=== PATIENT | male | born 1945 | race Caucasian/White ===

== ENCOUNTER 2016-08-16 02:21 | Inpatient (IN) | payer MEDICARE ==
--- NOTE | 2016-08-16 02:36 | EDM.PDOC ---
ED HISTORY OF PRESENT ILLNESS - General Chief Complaint: Respiratory Problem Stated Complaint: shortness of breath Time Seen by Provider: 08/16/16 02:24 Source of Information: Reports: Patient History Limitations: Reports: No limitations - History of Present Illness INITIAL COMMENTS - FREE TEXT/NARRATIVE: Patient arrives via EMS with complaints of shortness of breath. He did receive a duoneb nebulizer treatment per the EMS crew which did improve his breathing per his own report. He states he began to come down with a "chest cold" on and has felt it moving into his head. He states he has a dry cough with little mucous production. He states he has not been able to sleep well. This evening he did fall asleep and awoke 2-3 hours later with chills, aches in his muscles and joints. He is a 1-2 pack per day smoker for the last 59 years. Denies alcohol or drug use. He denies abdominal pain, normal voiding and bowel habits. No emesis, no nausea. Denies bloody emesis, stool, or urine. He does endorse fever, chills, shortness of breath, muscle and joint aches. He has had the influenza vaccine this year. Medical history includes GERD, HTN, chronic back pain, anxiety/depression. Numerous surgeries on his left knee. Symptom Onset Date: 08/11/16 Timing/Duration: Reports: Getting worse, Gradual onset Severity: moderate Location, General: Reports: chest Associated Symptoms (General): Reports: cough w sputum, diaphoresis, fever/ chills, shortness of breath Treatments AP[facility] [employer]ORTER: Reports: NSAIDS - Related Data Allergies/ADRs: Allergies Allergy/AdvReac Type Severity Reaction Status Date / Time opiates Allergy Shaking Uncoded 08/16/16 02:30 Home Meds: Home Meds Aspirin [Halfprin] 81 mg PO BRK 08/16/16 [History] Citalopram Hydrobromide [Celexa] 0.5 tab PO DAILY 08/16/16 [History] Ibuprofen 600 mg PO TID PRN 08/16/16 [History] Lisinopril [Zestril] 0.5 tab PO DAILY 08/16/16 [History] Pantoprazole [Protonix] 40 mg PO ACBREAKFAST 08/16/16 [History] Pregabalin [Lyrica] 200 mg PO BID 08/16/16 [History] guaiFENesin [Guaifenesin] 200 mg PO TID PRN 08/16/16 [History] ED ROS GENERAL - Review of Systems Review Of Systems: See Below Constitutional: Reports: fever, chills, night sweats, diaphoresis HEENT: Reports: No symptoms Respiratory: Reports: shortness of breath, cough, sputum Cardiovascular: Reports: No symptoms Endocrine: Reports: no symptoms GI/Abdominal: Reports: No symptoms : Reports: no symptoms Musculoskeletal: Reports: neck pain (chronic), back pain (chronic), muscle pain , muscle stiffness Skin: Reports: diaphoresis Neurological: Reports: no symptoms Psychiatric: Reports: No symptoms Hematologic/Lymphatic: Reports: no symptoms Immunologic: Reports: no symptoms ED EXAM, GENERAL - Physical Exam Exam: See Below Exam Limited By: No limitations General Appearance: alert, WD/WN, no apparent distress Eye Exam: bilateral eye: EOMI, PERRL Ears: normal TMs Nose: normal inspection Throat/Mouth: Normal inspection, Normal oropharynx Head: atraumatic, normocephalic Neck: normal inspection, supple, non-tender, full range of motion Respiratory/Chest: no respiratory distress, no accessory muscle use, chest non- tender, rales Cardiovascular: normal peripheral pulses, regular rate, rhythm, no edema, no murmur GI/Abdominal: normal bowel sounds, soft, non tender, no organomegaly, no distention Back Exam: normal inspection, full range of motion Extremities: normal inspection, normal range of motion, non-tender, normal capillary refill Neurological: alert, oriented, CN II-XII intact, normal cognition, normal gait Psychiatric: normal affect, normal mood Skin Exam: Warm, Dry, Intact Lymphatic: no adenopathy Course - Vital Signs Last Recorded V/S: Last Vital Signs Temp 37.6 C 08/16/16 04:38 Pulse 78 08/16/16 04:38 Resp 16 08/16/16 04:38 BP 141/67 H 08/16/16 04:38 Pulse Ox 94 L 08/16/16 04:38 - Orders/Labs/Meds Orders: Active Orders 24 hr Category Date Time Status Patient Status [ADT] Routine ADT 08/16/16 04:09 Active EKG Documentation Completion [RC] URGENT Care 08/16/16 02:30 Active Oxygen Therapy Adult [Oxygen Therapy, ED] [RC] Care 08/16/16 02:31 Active ASDIRECTED Chest 1V Frontal [CR] Stat Exams 08/16/16 02:30 Taken CULTURE BLOOD [BC] Stat Lab 08/16/16 04:20 Received CULTURE BLOOD [BC] Stat Lab 08/16/16 04:25 Received Sodium Chloride 0.9% [Normal Saline] 1,000 ml Med 08/16/16 04:15 Active IV ASDIRECTED Blood Culture x2 Reflex Set [OM.PC] Stat Oth 08/16/16 04:13 Ordered Medication Orders Sodium Chloride (Normal Saline) 1,000 mls @ 150 mls/hr IV ASDIRECTED ELIEZER Last Admin: 08/16/16 04:12 Dose: 150 mls/hr Labs: Laboratory Tests 08/16/16 08/16/16 08/16/16 Range/Units 03:10 03:10 03:10 WBC 10.4 H (4.0-10.0) x10^3/uL RBC 4.65 (4.5-6.0) x10^6/uL Hgb 14.4 (14.0-18.0) g/dL Hct 42.5 (40.0-52.0) % MCV 91.4 (78.0-93.0) fL MCH 31.0 (26.0-32.0) pg MCHC 33.9 (32.0-36.0) g/dL RDW Coeff of Kg 12.6 (10.0-15.0) % Plt Count 158 (130-400) x10^3/uL Neut % (Auto) 87.2 H (50.0-80.0) % Lymph % (Auto) 6.2 L (25.0-50.0) % Benzie % (Auto) 6.3 (2.0-11.0) % Eos % (Auto) 0.2 (0.0-4.0) % Baso % (Auto) 0.1 L (0.2-1.2) % PT 11.4 (10.0-12.8) SEC INR 1.0 L (2.0-3.5) Sodium 138 (136-145) mmol/L Potassium 4.3 (3.5-5.1) mmol/L Chloride 102 (98-107) mmol/L Carbon Dioxide 27 (21-32) mmol/L BUN 17 (7-18) mg/dL Creatinine 1.1 (0.70-1.30) mg/dL Est Cr Clr Drug Dosing 72.65 mL/min Estimated GFR (MDRD) > 60 Glucose 125 H (74-106) mg/dL Calcium 8.7 (8.5-10.1) mg/dL Corrected Calcium 8.94 (8.5-10.1) mg/dL Total Bilirubin 0.9 (0.2-1.0) mg/dL AST 19 (15-37) U/L ALT 28 (16-63) U/L Alkaline Phosphatase 51 (46-116) U/L Creatine Kinase 141 (39-308) U/L Creatine Kinase Index 0.6 (0.0-4.0) % CK-MB (CK-2) 0.8 (0.0-3.6) ng/mL Troponin I < 0.017 (<=0.056) ng/mL C-Reactive Protein 5.8 H (<=0.9) mg/dL B-Natriuretic Peptide 159 H (<=125) pg/mL Total Protein 7.1 (6.4-8.2) g/dL Albumin 3.7 (3.4-5.0) g/dL Globulin 3.4 Albumin/Globulin Ratio 1.09 Urine Color (YELLOW) Urine Appearance (CLEAR) Urine pH (5.0-8.0) Ur Specific Prospect Urine Protein (NEGATIVE) mg/dL Urine Glucose (UA) (NEGATIVE) mg/dL Urine Ketones (NEGATIVE) mg/dL Urine Occult Blood (NEGATIVE) Urine Nitrite (NEGATIVE) Urine Bilirubin (NEGATIVE) Urine Urobilinogen (0.2) EU/dL Ur Leukocyte Esterase (NEGATIVE) Urine RBC (NOT SEEN) /HPF Urine WBC (NOT SEEN) /HPF Ur Squamous Epith Cells (NEGATIVE) /HPF Urine Bacteria (NEGATIVE) /HPF Urine Mucus (NEGATIVE) /LPF 08/16/16 Range/Units 04:00 WBC (4.0-10.0) x10^3/uL RBC (4.5-6.0) x10^6/uL Hgb (14.0-18.0) g/dL Hct (40.0-52.0) % MCV (78.0-93.0) fL MCH (26.0-32.0) pg MCHC (32.0-36.0) g/dL RDW Coeff of Kg (10.0-15.0) % Plt Count (130-400) x10^3/uL Neut % (Auto) (50.0-80.0) % Lymph % (Auto) (25.0-50.0) % Benzie % (Auto) (2.0-11.0) % Eos % (Auto) (0.0-4.0) % Baso % (Auto) (0.2-1.2) % PT (10.0-12.8) SEC INR (2.0-3.5) Sodium (136-145) mmol/L Potassium (3.5-5.1) mmol/L Chloride (98-107) mmol/L Carbon Dioxide (21-32) mmol/L BUN (7-18) mg/dL Creatinine (0.70-1.30) mg/dL Est Cr Clr Drug Dosing mL/min Estimated GFR (MDRD) Glucose (74-106) mg/dL Calcium (8.5-10.1) mg/dL Corrected Calcium (8.5-10.1) mg/dL Total Bilirubin (0.2-1.0) mg/dL AST (15-37) U/L ALT (16-63) U/L Alkaline Phosphatase (46-116) U/L Creatine Kinase (39-308) U/L Creatine Kinase Index (0.0-4.0) % CK-MB (CK-2) (0.0-3.6) ng/mL Troponin I (<=0.056) ng/mL C-Reactive Protein (<=0.9) mg/dL B-Natriuretic Peptide (<=125) pg/mL Total Protein (6.4-8.2) g/dL Albumin (3.4-5.0) g/dL Globulin Albumin/Globulin Ratio Urine Color Dark yellow H (YELLOW) Urine Appearance Clear (CLEAR) Urine pH 6.5 (5.0-8.0) Ur Specific Prospect 1.020 Urine Protein Trace H (NEGATIVE) mg/dL Urine Glucose (UA) Negative (NEGATIVE) mg/dL Urine Ketones 15 H (NEGATIVE) mg/dL Urine Occult Blood Moderate H (NEGATIVE) Urine Nitrite Negative (NEGATIVE) Urine Bilirubin Small H (NEGATIVE) Urine Urobilinogen >=8.0 H (0.2) EU/dL Ur Leukocyte Esterase Negative (NEGATIVE) Urine RBC 10-20 H (NOT SEEN) /HPF Urine WBC 0-5 (NOT SEEN) /HPF Ur Squamous Epith Cells Not seen (NEGATIVE) /HPF Urine Bacteria Few H (NEGATIVE) /HPF Urine Mucus Few H (NEGATIVE) /LPF Meds: Medications Generic Name Dose Route Start Last Admin Trade Name Freq PRN Reason Stop Dose Admin Sodium Chloride 1,000 mls @ 150 mls/hr 08/16/16 04:15 08/16/16 04:12 Normal Saline IV 150 mls/hr ASDIRECTED ELIEZER Administration Discontinued Medications Generic Name Dose Route Start Last Admin Trade Name Freq PRN Reason Stop Dose Admin Azithromycin 1,000 mg 08/16/16 04:05 08/16/16 04:22 Zithromax PO 08/16/16 04:06 1,000 mg ONETIME ONE Administration Ceftriaxone Sodium 2 gm 08/16/16 03:59 08/16/16 04:21 Rocephin IVPUSH 08/16/16 04:00 2 gm ONETIME ONE Administration Departure - Departure Time of Disposition: 04:30 Disposition: Refer to Observation Clinical Impression: CAP (community acquired pneumonia) - Problem List & Annotations (1) CAP (community acquired pneumonia) SNOMED Code(s): 371925067 Code(s): J18.9 - PNEUMONIA, UNSPECIFIED ORGANISM Status: Acute Priority: Medium Current Visit: Yes - Problem List Review Problem List Initiated/Reviewed/Updated: Yes - My Orders Last 24 Hours: My Active Orders 08/16/16 02:30 EKG Documentation Completion [RC] URGENT Chest 1V Frontal [CR] Stat 08/16/16 02:31 Oxygen Therapy Adult [Oxygen Therapy, ED] [RC] ASDIRECTED 08/16/16 04:09 Patient Status [ADT] Routine 08/16/16 04:13 Blood Culture x2 Reflex Set [OM.PC] Stat 08/16/16 04:15 Sodium Chloride 0.9% [Normal Saline] 1,000 ml IV ASDIRECTED 08/16/16 04:20 CULTURE BLOOD [BC] Stat 08/16/16 04:25 CULTURE BLOOD [BC] Stat - Assessment/Plan Last 24 Hours: My Active Orders 08/16/16 02:30 EKG Documentation Completion [RC] URGENT Chest 1V Frontal [CR] Stat 08/16/16 02:31 Oxygen Therapy Adult [Oxygen Therapy, ED] [RC] ASDIRECTED 08/16/16 04:09 Patient Status [ADT] Routine 08/16/16 04:13 Blood Culture x2 Reflex Set [OM.PC] Stat 08/16/16 04:15 Sodium Chloride 0.9% [Normal Saline] 1,000 ml IV ASDIRECTED 08/16/16 04:20 CULTURE BLOOD [BC] Stat 08/16/16 04:25 CULTURE BLOOD [BC] Stat Assessment:: community acquired pneumonia Plan: admit to observation
[2016-08-16 03:11] LABS: BASOPHILS PERCENT AUTO 0.1 % (0.2-1.2); EOSINOPHILS PERCENT AUTO 0.2 % (0.0-4.0); HEMATOCRIT 42.5 % (40.0-52.0); HEMOGLOBIN 14.4 g/dL (14.0-18.0); LYMPHOCYTES PERCENT AUTO 6.2 % (25.0-50.0); MEAN CORPUSCULAR HGB CONC 33.9 g/dL (32.0-36.0); MEAN CORPUSCULAR VOLUME 91.4 fL (78.0-93.0); MONOCYTES PERCENT AUTO 6.3 % (2.0-11.0); RDW CV 12.6 % (10.0-15.0); RED BLOOD CELL COUNT 4.65 x10^6/uL (4.5-6.0)
[2016-08-16 03:17] LABS: NEUTROPHILS PERCENT AUTO 87.2 % (50.0-80.0)
[2016-08-16 03:38] LABS: PROTHROMBIN TIME 11.4 SEC (10.0-12.8)
[2016-08-16] MEDS ORDERED: cefTRIAXone 2 GM Vial IVPUSH ONE (03:59)
[2016-08-16 04:00] LABS: A/G RATIO 1.09; ALBUMIN 3.7 g/dL (3.4-5.0); ALKALINE PHOSPHATASE 51 U/L (46-116); B-TYPE NATRIURETIC PEPTIDE,BNP 159 pg/mL (<=125); BILIRUBIN TOTAL 0.9 mg/dL (0.2-1.0); C-REACTIVE PROTEIN 5.8 mg/dL (<=0.9); CALCIUM 8.7 mg/dL (8.5-10.1); CHLORIDE,CL 102 mmol/L (98-107); CORRECTED CALCIUM 8.94 mg/dL (8.5-10.1); CREATININE 1.1 mg/dL (0.70-1.30); EST CRCL DRUG DOSING (CG) 72.65 mL/min; ESTIMATED GFR > 60; GLUCOSE RANDOM 125 mg/dL (74-106)
[2016-08-16 04:03] LABS: CKMB 0.8 ng/mL (0.0-3.6); TROPONIN I < 0.017 ng/mL (<=0.056)
[2016-08-16] MEDS ORDERED: Azithromycin 250 MG Tab PO ONE (04:05)
[2016-08-16 04:07] LABS: APPEARANCE,URINE CLEAR (CLEAR); BILIRUBIN,URINE SMALL (NEGATIVE); GLUCOSE,URINE NEGATIVE (NEGATIVE); KETONES,URINE 15 mg/dL (NEGATIVE); LEUKOCYTE ESTERASE,URINE NEGATIVE (NEGATIVE); NITRITE,URINE NEGATIVE (NEGATIVE); OCCULT BLOOD,URINE MODERATE (NEGATIVE); PH,URINE 6.5 (5.0-8.0); PROTEIN,URINE TRACE mg/dL (NEGATIVE); UROBILINOGEN,URINE >=8.0 EU/dL (0.2)
[2016-08-16 04:11] LABS: BACTERIA,URINE FEW /HPF (NEGATIVE); MUCUS,URINE FEW /LPF (NEGATIVE); WBC,URINE 0-5 /HPF (NOT SEEN)
[2016-08-16] MEDS: Sodium Chloride 0.9% 1,000 ML IV SCH ×2 (04:12→17:35)
[2016-08-16] MEDS ORDERED: Ibuprofen 200 MG Tab PO PRN (05:18)
[2016-08-16] MEDS ORDERED: Ondansetron 4 MG/2 ML SDV IV PRN (05:18)
[2016-08-16] MEDS ORDERED: Acetaminophen 325 MG Tab PO PRN (05:18)
[2016-08-16] MEDS ORDERED: Acetaminophen/HYDROcodone 325-5 MG Tab PO PRN (05:18)
[2016-08-16] MEDS ORDERED: Promethazine 25 MG Tab PO PRN (05:18)
[2016-08-16] MEDS ORDERED: guaiFENesin 100 MG/5 ML Soln 10 ML UD Cup PO PRN (05:23)
[2016-08-16] MEDS: Pantoprazole 40 MG Tab.CR PO SCH (06:39)
[2016-08-16] MEDS: Aspirin 81 MG Tab.EC PO SCH ×2 (06:41→10:14)
[2016-08-16] MEDS ORDERED: Lisinopril 5 MG Tab PO SCH (08:00)
[2016-08-16] MEDS: Pregabalin 50 MG Cap PO SCH ×2 (08:12→20:11)
[2016-08-16] MEDS: Azithromycin 250 MG Tab PO SCH (08:12)
[2016-08-16] MEDS: Nicotine 21 MG/24 Hr Patch TRDERM SCH (08:12)
[2016-08-16] MEDS ORDERED: Loperamide 2 MG Cap PO PRN (08:57)
[2016-08-16] MEDS: Citalopram 20 MG Tab PO SCH (11:05)
[2016-08-16 11:50] LABS: BASOPHILS PERCENT AUTO 0.2 % (0.2-1.2); EOSINOPHILS PERCENT AUTO 0.3 % (0.0-4.0); HEMATOCRIT 39.4 % (40.0-52.0); HEMOGLOBIN 13.2 g/dL (14.0-18.0); LYMPHOCYTES PERCENT AUTO 16.3 % (25.0-50.0); MEAN CORPUSCULAR HEMOGLOBIN 31.1 pg (26.0-32.0); MEAN CORPUSCULAR HGB CONC 33.5 g/dL (32.0-36.0); MEAN CORPUSCULAR VOLUME 92.9 fL (78.0-93.0); MONOCYTES PERCENT AUTO 8.2 % (2.0-11.0); RDW CV 12.7 % (10.0-15.0); RED BLOOD CELL COUNT 4.24 x10^6/uL (4.5-6.0)
[2016-08-16] MEDS ORDERED: cefTRIAXone 1 GM Vial IVPUSH ONE (12:15)
[2016-08-16 12:18] LABS: B-TYPE NATRIURETIC PEPTIDE,BNP 200 pg/mL (<=125); C-REACTIVE PROTEIN 11.6 mg/dL (<=0.9); CALCIUM 8.4 mg/dL (8.5-10.1); CHLORIDE,CL 102 mmol/L (98-107); EST CRCL DRUG DOSING (CG) 81.03 mL/min; ESTIMATED GFR > 60; GLUCOSE RANDOM 107 mg/dL (74-106)
[2016-08-16 12:21] LABS: TROPONIN I < 0.017 ng/mL (<=0.056)
[2016-08-16] MEDS ORDERED: Iopamidol 612 MG/ML 100 ML Bottle IVPUSH ONE (13:08)
[2016-08-16] MEDS ORDERED: Sodium Chloride 0.9% 100 ML IV ONE (13:08)
[2016-08-16] MEDS: methylPREDNISolone Sodium Succinate 125 MG/2 ML SDV IVPUSH SCH ×2 (15:24→20:13)
[2016-08-16] MEDS: Enoxaparin 40 MG/0.4 ML Syringe SUBCUT SCH (15:25)
--- NOTE | 2016-08-16 16:06 | PN ---
Progress Note for JOSE L CARLOS Date: 08/16/2016 Room #: VM.202 SUBJECTIVE: The patient was admitted last night at approximately 3 a.m. by Erasmo Murrell with community-acquired pneumonia and COPD exacerbation. The patient was started on IV Rocephin, azithromycin, and Solu-Medrol. He was kept on IV normal saline at 100 an hour and states this morning that he is feeling significantly better. He has remained on O2 via nasal cannula at approximately 2 L/minutes. He has been maintaining O2 saturations in the low-to-mid 90s, but does desaturate when he is ambulatory and when he is off his oxygen. A D-dimer was performed which was positive. The patient subsequently underwent CT angiogram of the chest, which was negative for pulmonary embolism, but there was evidence of a significant amount of right lower lobe pneumonia and lymphadenopathy, which will need to be followed upon. PHYSICAL EXAMINATION: General: This is a 70-year-old male patient, who is in no acute distress. Vital Signs: Blood pressure is 133/44, pulse rate is 65, temperature is 36.3, and O2 saturation is 95% on 2 L. Skin: Warm, pink, and dry. HEENT: Mouth, oral mucosa is moist. No erythema or exudate noted in the hypopharynx. Neck: Supple without masses. There is no lymphadenopathy. Lungs: Diminished primarily in the right lower lobe. He does have some rhonchi primarily in the right side as well. No significant wheezing noted. Heart: Regular rate and rhythm. Abdomen: Soft and nontender. There is no hepatosplenomegaly or masses noted. Extremities: Without edema. LABORATORY DATA: WBC 11.4, hemoglobin is 13.2, and platelets are 162. D-dimer again was positive at 1.23. Chemistry; sodium is 138, potassium is 4.4, chloride is 102, bicarb is 28, BUN is 17, creatinine is 1.0, creatinine clearance is 81, GFR is greater than 60, glucose is 107. Lactic acid is 0.9, calcium is 8.4. ProBNP elevated mildly at 200. C-reactive protein is 11.6. ASSESSMENT: 1. Community-acquired pneumonia. 2. Chronic obstructive pulmonary disease exacerbation. PLAN: The patient's Rocephin will be kept at 2 g per day. We will continue azithromycin 500 mg p.o. daily as well. I did start him on Lovenox for DVT prophylaxis. Also, I did start him on prednisone 125 mg b.i.d. for his underlying COPD. Again, the radiologist was somewhat concerned about the lymphadenopathy in his right hilum. He stated that this could be secondary to inflammation from pneumonia, but he states that the patient will require a repeat chest CT in 1 to 2 months after this acute illness is resolved. All questions were answered. Given the severity of the patient's illness, he is going to be transitioned to acute status. The patient is a [facility], who does not have a local provider, so will be followed by [facility] providers. MWK: 08/16/2016 15:08:33 MODL: 08/16/2016 15:42:42 /[id number]
[2016-08-16] MEDS: Lisinopril 5 MG Tab PO SCH (20:12)
[2016-08-17] MEDS: Sodium Chloride 0.9% 1,000 ML IV SCH ×2 (00:24→07:19)
[2016-08-17 06:44] LABS: HEMATOCRIT 38.5 % (40.0-52.0); HEMOGLOBIN 12.9 g/dL (14.0-18.0); MEAN CORPUSCULAR HEMOGLOBIN 31.2 pg (26.0-32.0); MEAN CORPUSCULAR HGB CONC 33.5 g/dL (32.0-36.0); MEAN CORPUSCULAR VOLUME 93.2 fL (78.0-93.0); RDW CV 12.4 % (10.0-15.0); RED BLOOD CELL COUNT 4.13 x10^6/uL (4.5-6.0)
[2016-08-17] MEDS: Enoxaparin 40 MG/0.4 ML Syringe SUBCUT SCH (07:19)
[2016-08-17] MEDS: Pregabalin 50 MG Cap PO SCH (07:19)
[2016-08-17] MEDS: methylPREDNISolone Sodium Succinate 125 MG/2 ML SDV IVPUSH SCH (07:19)
[2016-08-17] MEDS: Lisinopril 5 MG Tab PO SCH (07:19)
[2016-08-17] MEDS: Azithromycin 250 MG Tab PO SCH (07:20)
[2016-08-17] MEDS: Nicotine 21 MG/24 Hr Patch TRDERM SCH (07:20)
[2016-08-17] MEDS: Citalopram 20 MG Tab PO SCH (07:20)
[2016-08-17] MEDS: Pantoprazole 40 MG Tab.CR PO SCH (07:20)
[2016-08-17] MEDS ORDERED: cefTRIAXone 1 GM Vial IVPUSH SCH (08:00)
[2016-08-17] MEDS ORDERED: cefTRIAXone 2 GM Vial IVPUSH SCH (08:00)
[2016-08-17] MEDS ORDERED: Aspirin 81 MG Tab.EC PO SCH (08:00)
--- NOTE | 2016-08-17 08:00 | PCM.PN ---
- General Info Date of Service: 08/17/16 Admission Dx/Problem (Free Text): Community Acquired Pneumonia - Right lower-mid lobe Subjective Update: Patient up eating, no chest pain, no chills or fever. Voiding and bowel movements without problem Functional Status: Reports: pain controlled - Review of Systems General: Reports: no symptoms HEENT: Reports: no symptoms Pulmonary: Reports: no symptoms Cardiovascular: Reports: no symptoms Gastrointestinal: Reports: No symptoms Genitourinary: Reports: no symptoms Musculoskeletal: Reports: back pain (chronic) Skin: Reports: no symptoms Neurological: Reports: no symptoms Psychiatric: Reports: no symptoms - Patient Data Vitals - most recent: Last Vital Signs Temp 36.6 C 08/17/16 05:19 Pulse 55 L 08/17/16 05:19 Resp 20 08/17/16 05:19 BP 122/61 08/17/16 05:19 Pulse Ox 93 L 08/17/16 05:19 Weight - most recent: 120.202 kg I&O - last 24 hours: Intake & Output 08/16/16 08/17/16 08/17/16 22:59 06:59 14:59 Intake Total 1140 5526 Output Total 1600 1150 Balance -460 4376 Lab Results last 24 hrs: Laboratory Results - last 24 hr 08/17/16 Range/Units 06:18 WBC 8.1 (4.0-10.0) x10^3/uL RBC 4.13 L (4.5-6.0) x10^6/uL Hgb 12.9 L (14.0-18.0) g/dL Hct 38.5 L (40.0-52.0) % MCV 93.2 H (78.0-93.0) fL MCH 31.2 (26.0-32.0) pg MCHC 33.5 (32.0-36.0) g/dL RDW Coeff of Kg 12.4 (10.0-15.0) % Plt Count 158 (130-400) x10^3/uL Med Orders - Current: Current Medications Acetaminophen (Tylenol) 650 mg PO Q4H PRN PRN Reason: Pain (Mild 1-3)/fever Aspirin (Halfprin) 81 mg PO DAILY ELIEZER Last Admin: 08/17/16 07:22 Dose: 81 mg Azithromycin (Zithromax) 500 mg PO DAILY ELIEZER Last Admin: 08/17/16 07:20 Dose: 500 mg Ceftriaxone Sodium (Rocephin) 2 gm IVPUSH DAILY [facility] Last Admin: 08/17/16 07:22 Dose: 2 gm Citalopram Hydrobromide (Celexa) 20 mg PO DAILY [facility] Last Admin: 08/17/16 07:20 Dose: 20 mg Enoxaparin Sodium (Lovenox) 40 mg SUBCUT DAILY [facility] Last Admin: 08/17/16 07:19 Dose: 40 mg Guaifenesin (Robitussin) 200 mg PO TID PRN PRN Reason: Congestion Last Admin: 08/16/16 06:42 Dose: 200 mg Sodium Chloride (Normal Saline) 1,000 mls @ 150 mls/hr IV ASDIRECTED [facility] Last Admin: 08/17/16 07:19 Dose: 150 mls/hr Ibuprofen (Motrin) 800 mg PO Q6H PRN PRN Reason: Pain (mild 1-3) Last Admin: 08/16/16 06:36 Dose: 800 mg Lisinopril (Prinivil) 5 mg PO BID [facility] Last Admin: 08/17/16 07:19 Dose: 5 mg Loperamide HCl (Imodium) 2 mg PO Q4H PRN PRN Reason: Diarrhea Last Admin: 08/16/16 11:05 Dose: 2 mg Methylprednisolone Sodium Succinate (Solu-Medrol) 125 mg IVPUSH BID [facility] Last Admin: 08/17/16 07:19 Dose: 125 mg Nicotine (Habitrol) 21 mg TRDERM DAILY [facility] Last Admin: 08/17/16 07:20 Dose: Not Given Ondansetron HCl (Zofran) 4 mg IV Q6H PRN PRN Reason: Nausea/Vomiting Pantoprazole Sodium (Protonix) 40 mg PO ACBREAKFAST [facility] Last Admin: 08/17/16 07:20 Dose: 40 mg Pregabalin (Lyrica) 200 mg PO BID [facility] Last Admin: 08/17/16 07:19 Dose: 200 mg Promethazine HCl (Phenergan) 25 mg PO Q6H PRN PRN Reason: nausea, able to take PO Discontinued Medications Acetaminophen/Hydrocodone Bitart ([place] 325-5 Mg) 1 tab PO Q4H PRN PRN Reason: Pain (moderate 4-6) Aspirin (Halfprin) 81 mg PO BRK [facility] Last Admin: 08/16/16 10:14 Dose: Not Given Azithromycin (Zithromax) 1,000 mg PO ONETIME ONE Stop: 08/16/16 04:06 Last Admin: 08/16/16 04:22 Dose: 1,000 mg Ceftriaxone Sodium (Rocephin) 2 gm IVPUSH ONETIME ONE Stop: 08/16/16 04:00 Last Admin: 08/16/16 04:21 Dose: 2 gm Ceftriaxone Sodium (Rocephin) 1 gm IVPUSH DAILY [facility] Ceftriaxone Sodium (Rocephin) 1 gm IVPUSH ONETIME ONE Stop: 08/16/16 12:16 Last Admin: 08/16/16 12:34 Dose: 1 gm Sodium Chloride (Normal Saline) 100 mls @ 2 mls/sec IV ONETIME ONE Stop: 08/16/16 13:09 Last Admin: 08/16/16 13:52 Dose: 2 mls/sec Iopamidol (Isovue-300 (61%)) 100 ml IVPUSH ONETIME ONE Stop: 08/16/16 13:09 Last Admin: 08/16/16 13:51 Dose: 100 ml Lisinopril (Prinivil) 5 mg PO DAILY [facility] Last Admin: 08/16/16 11:05 Dose: 5 mg - Exam General: alert, oriented, cooperative, no acute distress HEENT: Pupils equal, Pupils reactive, EOMI Neck: supple Lungs: Clear to auscultation, Normal respiratory effort, Decreased breath sounds Cardiovascular: regular rate, regular rhythm Abdomen: bowel sounds present, soft, no tenderness Back Exam: normal inspection, full range of motion (full but with chronic pain) Extremities: no edema Peripheral Pulses: 2+: posterior tibial (L), posterior tibial (R), dorsalis pedis (L), dorsalis pedis (R) Skin: warm, dry, intact Neurological: no new focal deficit Psy/Mental Status: alert, normal affect, normal mood - Problem List & Annotations (1) CAP (community acquired pneumonia) SNOMED Code(s): 508869778 Code(s): J18.9 - PNEUMONIA, UNSPECIFIED ORGANISM Status: Acute Priority: Medium Current Visit: Yes - Problem List Review Problem List Initiated/Reviewed/Updated: Yes - My Orders Last 24 Hours: My Active Orders 08/17/16 07:54 RT Aerosol Therapy [RC] ASDIRECTED Respiratory Care Assess and Treatment [CONS] Routine 08/17/16 11:00 Albuterol/Ipratropium [DuoNeb 3.0-0.5 MG/3 ML] 3 ml NEB Q4HRRT - Assessment Assessment:: right lower - mid lobe CAP - Plan Plan:: discharge today if able to ambulate and maintain oxygen saturations above 90% and no SOB/respiratory distress
[2016-08-17 10:12] VITALS: BP 130/68
[2016-08-17] MEDS ORDERED: Albuterol/Ipratropium 3.0-0.5 MG/3 ML Neb Soln NEB SCH (11:00)
--- NOTE | 2016-08-17 11:02 | PCM.DCSUM1 ---
Discharge Summary - Hospital Course Free Text/Narrative:: Patient presented early Monday morning with shortness of breath, admitted for possible CAP. HPI Initial Comments: He began feeling ill on Monday with it progressively worsening until he was awakened late Monday night/Monday morning with fever, chills, diaphoresis. - Discharge Data Discharge Date: 08/17/16 Discharge Disposition: Home, Self-Care 01 Condition: Good - Discharge Diagnosis/Problem(s) (1) CAP (community acquired pneumonia) SNOMED Code(s): 265339488 ICD Code: J18.9 - PNEUMONIA, UNSPECIFIED ORGANISM Status: Acute Priority : Medium Current Visit: Yes - Patient Summary/Data Consults: Consultations 08/17/16 07:54 Respiratory Care Assess and Treatment [CONS] Routine - Patient Instructions Diet: Heart Healthy Diet Activity: Cough & Deep Breathe (Continue to use incentive spirometer) Driving: May Drive Today Showering/Bathing: December Shower Notify Provider of: Fever (continue to monitor for fever, chills, muscle aches) - Discharge Plan Prescriptions/Med Rec: Azithromycin [Zithromax] 500 mg PO DAILY 5 Days Home Medications: Home Meds Aspirin [Halfprin] 81 mg PO BRK 08/16/16 [History] Citalopram Hydrobromide [Celexa] 20 mg PO DAILY 08/16/16 [History] Ibuprofen 600 mg PO TID PRN 08/16/16 [History] Lisinopril [Zestril] 5 mg PO BID 08/16/16 [History] Pantoprazole [Protonix] 40 mg PO ACBREAKFAST 08/16/16 [History] Pregabalin [Lyrica] 200 mg PO BID 08/16/16 [History] guaiFENesin [Guaifenesin] 400 mg PO TID PRN 08/16/16 [History] Azithromycin [Zithromax] 500 mg PO DAILY 5 Days 08/17/16 [Rx] Patient Handouts: Community-Acquired Pneumonia, Adult, [id number] Forms: ED Department Discharge Referrals: PCP,Unknown [Primary Care Provider] - - Discharge Summary/Plan Comment DC Time >30 min.: Yes Discharge Summary/Plan Comment: [facility] of his chest. CTA yesterday was negative for a PE but did show right lower lobe pneumonia and a lymphadenopathy that may be reactive in nature, but malignancy could not be ruled out and follow up CT was recommended by radiologist. You need to quit smoking as this can contribute to your shortness of breath. You should also have some pulmonary tests performed to rule out a new onset COPD. Please call the hospital if you have any questions between now and your [facility]. - General Info Date of Service: 08/17/16 Admission Dx/Problem (Free Text: Community Acquired Pneumonia - Right lower-mid lobe Subjective Update: Patient up eating, no chest pain, no chills or fever. Voiding and bowel movements without problem Functional Status: Reports: pain controlled - Review of Systems General: Reports: no symptoms HEENT: Reports: no symptoms Pulmonary: Reports: no symptoms Cardiovascular: Reports: no symptoms Gastrointestinal: Reports: No symptoms Genitourinary: Reports: no symptoms Musculoskeletal: Reports: no symptoms Skin: Reports: no symptoms Neurological: Reports: no symptoms Psychiatric: Reports: no symptoms - Patient Data Vitals - Most Recent: Last Vital Signs Temp 36.2 C 08/17/16 10:00 Pulse 68 08/17/16 10:00 Resp 20 08/17/16 10:00 BP 130/68 08/17/16 10:00 Pulse Ox 95 08/17/16 10:00 Weight - Most Recent: 120.202 kg I&O - Last 24 hours: Intake & Output 08/16/16 08/17/16 08/17/16 22:59 06:59 14:59 Intake Total 1140 5526 510 Output Total 1600 1150 Balance -460 4376 510 Lab Results - Last 24 hrs: Laboratory Results - last 24 hr 08/17/16 Range/Units 06:18 WBC 8.1 (4.0-10.0) x10^3/uL RBC 4.13 L (4.5-6.0) x10^6/uL Hgb 12.9 L (14.0-18.0) g/dL Hct 38.5 L (40.0-52.0) % MCV 93.2 H (78.0-93.0) fL MCH 31.2 (26.0-32.0) pg MCHC 33.5 (32.0-36.0) g/dL RDW Coeff of Kg 12.4 (10.0-15.0) % Plt Count 158 (130-400) x10^3/uL Med Orders - Current: Current Medications Acetaminophen (Tylenol) 650 mg PO Q4H PRN PRN Reason: Pain (Mild 1-3)/fever Albuterol/Ipratropium (Duoneb 3.0-0.5 Mg/3 Ml) 3 ml NEB Q4HRRT [facility] Last Admin: 08/17/16 10:38 Dose: 3 ml Aspirin (Halfprin) 81 mg PO DAILY [facility] Last Admin: 08/17/16 07:22 Dose: 81 mg Azithromycin (Zithromax) 500 mg PO DAILY [facility] Last Admin: 08/17/16 07:20 Dose: 500 mg Ceftriaxone Sodium (Rocephin) 2 gm IVPUSH DAILY [facility] Last Admin: 08/17/16 07:22 Dose: 2 gm Citalopram Hydrobromide (Celexa) 20 mg PO DAILY [facility] Last Admin: 08/17/16 07:20 Dose: 20 mg Enoxaparin Sodium (Lovenox) 40 mg SUBCUT DAILY [facility] Last Admin: 08/17/16 07:19 Dose: 40 mg Guaifenesin (Robitussin) 200 mg PO TID PRN PRN Reason: Congestion Last Admin: 08/16/16 06:42 Dose: 200 mg Sodium Chloride (Normal Saline) 1,000 mls @ 150 mls/hr IV ASDIRECTED [facility] Last Admin: 08/17/16 07:19 Dose: 150 mls/hr Ibuprofen (Motrin) 800 mg PO Q6H PRN PRN Reason: Pain (mild 1-3) Last Admin: 08/16/16 06:36 Dose: 800 mg Lisinopril (Prinivil) 5 mg PO BID [facility] Last Admin: 08/17/16 07:19 Dose: 5 mg Loperamide HCl (Imodium) 2 mg PO Q4H PRN PRN Reason: Diarrhea Last Admin: 08/16/16 11:05 Dose: 2 mg Methylprednisolone Sodium Succinate (Solu-Medrol) 125 mg IVPUSH BID [facility] Last Admin: 08/17/16 07:19 Dose: 125 mg Nicotine (Habitrol) 21 mg TRDERM DAILY [facility] Last Admin: 08/17/16 07:20 Dose: Not Given Ondansetron HCl (Zofran) 4 mg IV Q6H PRN PRN Reason: Nausea/Vomiting Pantoprazole Sodium (Protonix) 40 mg PO ACBREAKFAST [facility] Last Admin: 08/17/16 07:20 Dose: 40 mg Pregabalin (Lyrica) 200 mg PO BID [facility] Last Admin: 08/17/16 07:19 Dose: 200 mg Promethazine HCl (Phenergan) 25 mg PO Q6H PRN PRN Reason: nausea, able to take PO Discontinued Medications Acetaminophen/Hydrocodone Bitart ([place] 325-5 Mg) 1 tab PO Q4H PRN PRN Reason: Pain (moderate 4-6) Aspirin (Halfprin) 81 mg PO BRK [facility] Last Admin: 08/16/16 10:14 Dose: Not Given Azithromycin (Zithromax) 1,000 mg PO ONETIME ONE Stop: 08/16/16 04:06 Last Admin: 08/16/16 04:22 Dose: 1,000 mg Ceftriaxone Sodium (Rocephin) 2 gm IVPUSH ONETIME ONE Stop: 08/16/16 04:00 Last Admin: 08/16/16 04:21 Dose: 2 gm Ceftriaxone Sodium (Rocephin) 1 gm IVPUSH DAILY [facility] Ceftriaxone Sodium (Rocephin) 1 gm IVPUSH ONETIME ONE Stop: 08/16/16 12:16 Last Admin: 08/16/16 12:34 Dose: 1 gm Sodium Chloride (Normal Saline) 100 mls @ 2 mls/sec IV ONETIME ONE Stop: 08/16/16 13:09 Last Admin: 08/16/16 13:52 Dose: 2 mls/sec Iopamidol (Isovue-300 (61%)) 100 ml IVPUSH ONETIME ONE Stop: 08/16/16 13:09 Last Admin: 08/16/16 13:51 Dose: 100 ml Lisinopril (Prinivil) 5 mg PO DAILY [facility] Last Admin: 08/16/16 11:05 Dose: 5 mg - Exam General: Reports: alert, oriented HEENT: Reports: Pupils equal, Pupils reactive, EOMI, Mucous membr. moist/pink Neck: Reports: supple Lungs: Reports: Clear to auscultation, Normal respiratory effort, Decreased breath sounds Cardiovascular: Reports: regular rate, regular rhythm Abdomen: Reports: bowel sounds present, soft, no tenderness, no distension Extremities: Reports: no edema Skin: Reports: warm, dry, intact Neurological: Reports: no new focal deficit Psy/Mental Status: Reports: alert, normal affect, normal mood *Q Meaningful Use (DIS) - VTE *Q VTE Criteria *Q: - Stroke *Q Stroke Criteria *Q: - AMI *Q AMI Criteria *Q:
== END 2016-08-17 12:25 | disposition home or self-care (01) | DRG 194 ==
LOC: VM.ED 02:21 → VM.MS 04:14 → OBSVTOIN 15:08
PROVIDERS: ADMIT Nurse Practitioner Family; ATTEND Physician Assistant
DX: J18.9 Pneumonia, unspecified organism (principal); R06.02 Shortness of breath; J44.1 Chronic obstructive pulmonary disease with (acute) exacerbation; K21.9 Gastro-esophageal reflux disease without esophagitis; I10 Essential (primary) hypertension; F41.8 Other specified anxiety disorders; Z79.82 Long term (current) use of aspirin; G89.29 Other chronic pain; M54.9 Dorsalgia, unspecified; M54.2 Cervicalgia; F17.200 Nicotine dependence, unspecified, uncomplicated
CPT/HCPCS: 36415; 71010; 71020; 71275; 80048; 80053; 81001; 82550; 82553; 83605; 83880 ×2; 84484 ×2; 85025 ×2; 85379; 85610; 86140 ×2; 87040 ×2; 87804 ×2; 93005 ×2; 94760; 96374; 99285; A9270 ×12; J0696 ×2; J7030; J7050; Q9967; 85027; 94640; J1650; J2930